=== PATIENT | male | born 1980 | race American Indian/Alaskan Native ===

== ENCOUNTER 2021-09-07 13:31 | Emergency (ER) | payer SELFPAY ==
[2021-09-07] MEDS ORDERED: LIDOCAINE-MPF (1%) 10 MG/1 ML VIAL 5 ML INFILTRATI ONE (14:04)
--- NOTE | 2021-09-07 14:04 | Emergency Department Report ---
ED Male HPI - General Stated complaint: CHECK UP , STD Time Seen by Provider: 09/07/21 14:04 Source: patient Mode of arrival: Ambulatory Limitations: No Limitations - History of Present Illness Initial comments: 41 yo comes to ER with 2 d hx of penile discharge. He has been "messing with this woman." No testicular/abd or back pain. ambulatory and non ill appearing on exam in triage MD Complaint: penile discharge -: Sudden, days(s) Radiation: none Improves with: none Worsens with: none - Related Data Sexually active: Yes Previous Rx's Medication Instructions Recorded Last Taken Type Azithromycin 1,000 mg PO ONCE #2 tablet 09/07/21 Unknown Rx metroNIDAZOLE [Flagyl] 2,000 mg PO ONCE #4 tab 09/07/21 Unknown Rx Allergies Allergy/AdvReac Type Severity Reaction Status Date / Time No Known Allergies Allergy Verified 09/07/21 14:06 ED Review of Systems ROS: Stated complaint: CHECK UP , STD Other details as noted in HPI Comment: All other systems reviewed and negative ED Past Medical Hx - Past Medical History Previous Medical History?: No - Surgical History Past Surgical History?: Yes Additional Surgical History: pin placed in left hip - Family History Family history: no significant - Social History Smoking Status: Current Every Day Smoker Substance Use Type: None - Medications Home Medications: Home Medications Medication Instructions Recorded Confirmed Last Taken Type Azithromycin 1,000 mg PO ONCE #2 tablet 09/07/21 Unknown Rx metroNIDAZOLE [Flagyl] 2,000 mg PO ONCE #4 tab 09/07/21 Unknown Rx ED Physical Exam - General Limitations: No Limitations General appearance: alert, in no apparent distress - Head Head exam: Present: atraumatic, normocephalic - Eye Eye exam: Present: normal appearance - ENT ENT exam: Present: mucous membranes moist - Neck Neck exam: Present: normal inspection - Respiratory Respiratory exam: Present: normal lung sounds bilaterally. Absent: respiratory distress - Cardiovascular Cardiovascular Exam: Present: regular rate, normal rhythm. Absent: systolic murmur, diastolic murmur, rubs, gallop - GI/Abdominal GI/Abdominal exam: Present: soft, normal bowel sounds - Rectal Rectal exam: Present: deferred - Extremities Exam Extremities exam: Present: normal inspection - Back Exam Back exam: Present: normal inspection - Neurological Exam Neurological exam: Present: alert, oriented X3 - Psychiatric Psychiatric exam: Present: normal affect, normal mood - Skin Skin exam: Present: warm, dry, intact, normal color. Absent: rash ED Course Vital Signs 09/07/21 14:08 Temperature 98.7 F Pulse Rate 78 Respiratory 16 Rate Blood Pressure 168/95 [Right] O2 Sat by Pulse 100 Oximetry ED Medical Decision Making - Medical Decision Making presumed std rocephin IM rx for azithro and flagyl educated on partner treatment and safe sex Vital Signs 09/07/21 14:08 Temperature 98.7 F Pulse Rate 78 Respiratory 16 Rate Blood Pressure 168/95 [Right] O2 Sat by Pulse 100 Oximetry dc home with dc plan of care. Pt verbalizes understanding - Differential Diagnosis std Critical care attestation.: If time is entered above; I have spent that time in minutes in the direct care of this critically ill patient, excluding procedure time. ED Disposition Clinical Impression: STD (male) Disposition: 01 HOME / SELF CARE / HOMELESS Is pt being admited?: No Does the pt Need Aspirin: No Condition: Stable Additional Instructions: safe sex Prescriptions: Azithromycin 1,000 mg PO ONCE #2 tablet metroNIDAZOLE [Flagyl] 2,000 mg PO ONCE #4 tab Referrals: MONICA PABLO MD [Staff Physician] - 3-5 Days Time of Disposition: 14:12
[2021-09-07 14:10] VITALS: BP 168/95
== END 2021-09-07 14:45 | disposition home or self-care (01) ==
LOC: ED 13:31
DX: A64 Unspecified sexually transmitted disease (principal); Z98.890 Other specified postprocedural states; F17.200 Nicotine dependence, unspecified, uncomplicated
CPT/HCPCS: 96372; 99281; J0696